=== PATIENT | male | born 1945 | race Caucasian/White ===

== ENCOUNTER 2022-01-07 09:45 | Outpatient (RCR) | payer MEDICARE ==
[~2022-01-07 09:45] MED LIST: ASPIRIN 81M81 MG/TA2 PO; B-12 500 MCG PO; CIALIS5 MG PO; COMPLETE SENIOR1 TA1 PO; FISH OIL500 MG PO; FLAX OIL1000 MG PO; FLONASEALLERGY NS; GLUCOSAMINE 1000 PO; OSCAL 500 TAB500 MG PO; VITAMIN C500 MG PO; ZOCOR 40MG40 MG PO
== END 2022-01-13 | disposition home or self-care (01) ==
LOC: WSPT
DX: R26.89 Other abnormalities of gait and mobility (principal); H81.90 Unspecified disorder of vestibular function, unspecified ear